=== PATIENT | male | born 1965 | race Hispanic/Latino ===

== ENCOUNTER 2019-07-14 07:06 | Day surgery (SDC) | payer BC ==
[2019-07-13 14:32] VITALS: BMI 28.7
[2019-07-14] MEDS ORDERED: PROPOFOL 200 MG/20 ML VIAL ONE (09:45)
--- NOTE | 2019-07-14 16:47 | OP ---
DATE OF PROCEDURE: 07/14/2019 PROCEDURE PERFORMED: Esophagogastroduodenoscopy with biopsy. PREOPERATIVE DIAGNOSES: Persistent abdominal pain, nausea. He has been on pantoprazole and also ranitidine for nearly 3 months. The patient continues to have abdominal pain. The patient is undergoing EGD. POSTOPERATIVE DIAGNOSES: 1. Normal esophagus. 2. Normal GE junction. 3. Gastritis and erosions of the gastric body. 4. Ulceration of the gastric antrum measuring approximately 1 cm. 5. Normal duodenum. DESCRIPTION OF PROCEDURE: The patient was placed on his left lateral position and was given sedation by Anesthesia Department. A [employer] video gastroscope under direct vision passed down the oropharynx, past the GE junction into the stomach and subsequently into the descending duodenum. The vocal cords appeared very healthy. The esophageal mucosa appears normal throughout. In the GE junction, no lesions seen. Retroflexion failed to show any pathology in fundus or cardia. The gastric mucosa . Over the gastric antrum, the patient ulceration. In the incisura angularis, no lesion seen. In the duodenal bulb and descending duodenum, no pathology. Biopsy obtained from gastric antrum and gastric body. The stomach was decompressed and the scope was removed. DISCHARGE PLANNING: This is a 54-year-old [place] male, came for EGD because of abdominal pain over the last 3 months. Although, the patient had been taking pantoprazole and also ranitidine, he continued to have abdominal pain. He was brought for EGD. The EGD showed gastric ulcer, gastritis, and erosions. DISCHARGE RECOMMENDATIONS: 1. Await gastric biopsy. 2. Continue present treatment. 3. Obtain abdominal sonogram in near future. Job ID: [id number]
== END 2019-07-14 10:00 | disposition home or self-care (01) ==
LOC: SDC 07:06
PROVIDERS: ATTEND Internal Medicine Gastroenterology
PROC: 0DB68ZZ Excision of Stomach, Via Natural or Artificial Opening Endoscopic (ICD-10-PCS; principal; 2019-07-14)
DX: K29.50 Unspecified chronic gastritis without bleeding (principal); K25.9 Gastric ulcer, unspecified as acute or chronic, without hemorrhage or perforation; Z79.899 Other long term (current) drug therapy
CPT/HCPCS: 88305; 88312; J2704